=== PATIENT | female | born 1985 | race Caucasian/White ===

== ENCOUNTER → 2017-03-01 16:51 | Outpatient (CLI) | payer MEDICAID | END | disposition home or self-care (01) | LOC: D.CT 16:51 | DX: R51 Headache (principal); R20.0 Anesthesia of skin ==

== ENCOUNTER → 2017-05-26 13:55 | Outpatient (CLI) | payer MEDICAID | END | disposition home or self-care (01) | LOC: D.US 13:55 | DX: N83.209 Unspecified ovarian cyst, unspecified side (principal) ==

== ENCOUNTER → 2017-12-18 08:14 | Outpatient (CLI) | payer MEDICAID | END | disposition home or self-care (01) | LOC: D.MRI 12-17 08:30 | DX: R20.2 Paresthesia of skin (principal) ==

== ENCOUNTER → 2018-06-24 08:15 | Outpatient (CLI) | payer BC | END | disposition home or self-care (01) | LOC: D.HCCARDIO 08:15 | PROVIDERS: ATTEND Internal Medicine Cardiovascular Disease | DX: R07.9 Chest pain, unspecified (principal) ==

== ENCOUNTER → 2018-07-07 11:28 | Outpatient (CLI) | payer BC ==
--- NOTE | 2018-07-13 14:37 | ST ---
PATIENT:ALANNAH FRASER MEDICAL RECORD: [id number] SEX: F LOCATION:[facility] ORDER #: ADMISSION DATE: 07/07/18 AGE OF PATIENT: 33 REFERRING PHYSICIAN: INTERPRETING PHYSICIAN: GEOVANY PORTER MD DATE OF SERVICE: 07/07/2018 NUCLEAR STRESS TEST INDICATION: Chest pain, shortness of breath, abnormal EKG stress test. She was exercised on standard Wero protocol for 8 minutes 20 seconds achieving greater than 85% of max target heart rate response with 32 mCi of sestamibi injected at peak stress, 11 mCi were used previously for rest images. FINDINGS: Gated SPECT reveals an excellent ejection fraction at 79% with good wall motion thickening and brightness throughout the segments. SPECT IMAGING: Cardiolite was used for a myocardial perfusion agent. There is homogeneous uptake throughout all segments at rest and stress with no evidence of inducible ischemia or previous infarction. OVERALL IMPRESSION: This is a normal rest-stress Cardiolite with no evidence of inducible ischemia or previous infarction. A gated SPECT reveals preserved ejection fraction greater than 79%. At this time I would evaluate noncardiac etiology of chest pain. TRANSINT:[id number] Voice Confirmation ID: [id number] DOCUMENT ID: [id number] CC: Soumya Moore, unknown. GEOVANY PORTER MD at 1437 CC: [id number] DICTATION DATE: 07/09/18 1325 DIRECTOR IT PROJECT: 07/10/18 0256 DEP CLI 07/07/18 [id number] [place] [address]
== END | disposition home or self-care (01) ==
LOC: D.HCCARDIO 11:28
PROVIDERS: ATTEND Internal Medicine Interventional Cardiology
DX: R07.9 Chest pain, unspecified (principal)

== ENCOUNTER 2019-03-06 22:07 | Emergency (ER) | payer MEDICAID ==
[~2019-03-06] VITALS: Ht 157.5 cm; Wt 62.6 kg
[2019-03-06 22:21] VITALS: Ht 157.5 cm; Wt 62.6 kg
[2019-03-06] MEDS ORDERED: GABAPENTIN300 MG PO (22:23)
[2019-03-06] MEDS ORDERED: DOXYCYCLINE HY100 M2 PO (22:23)
[2019-03-07 00:05] LABS: HEMATOCRIT 40.1 % (36.0-48.0); HEMOGLOBIN 13.2 g/dL (12-16); LYMPHOCYTES 25.2 % (15-50); MCH 28.9 pg (26.0-34.0); MCHC 32.9 g/dL (31.0-37.0); MCV 87.7 fL (80.0-100.0); NEUTROPHILS 67.3 % (40-80); PLATELET COUNT 244 10x3/uL (130-400); RBC 4.57 10x6/uL (4.00-5.40); WBC 7.7 10x3/uL (4.8-10.8)
[2019-03-07 00:06] LABS: APTT 31.1 SECONDS (22.8-39.4); INR 0.94 (0.85-1.17); PROTIME 12.6 SECONDS (11.6-15.0)
[2019-03-07 00:07] LABS: CALC OSMOLALITY 284 mosm/kg (275-300); CARBON DIOXIDE 31.3 mmol/L (21.0-32.0); CHLORIDE - SERUM 103 mmol/L (98-107); CREATININE - SERUM 0.8 mg/dL (0.6-1.3); GLUCOSE 97 mg/dL (74-106); POTASSIUM - SERUM 3.7 mmol/L (3.5-5.1); SODIUM 143 mmol/L (136-145); UREA NITROGEN 13 mg/dL (7-18); eGFR NON AFRICAN AMERICAN 86 mL/min (90-120)
[2019-03-07 00:20] LABS: ALBUMIN 4.2 g/dL (3.4-5.0); ALKALINE PHOSPHATASE 85 U/L (30-120); ALT (SGPT) 15 U/L (10-68); CKMB 1.1 U/L (0.0-3.6); CREATINE KINASE 257 UL (21-215); MAGNESIUM - SERUM 2.1 mg/dL (1.8-2.4); PROTEIN - SERUM 7.8 g/dL (6.4-8.2); TROPONIN-I < 0.017 ng/mL (0.000-0.060)
[2019-03-07] MEDS ORDERED: CYCLOBENZAPRINE10 MG PO (00:22)
[2019-03-07 00:50] VITALS: BP 111/69
== END 2019-03-07 00:48 | disposition home or self-care (01) ==
LOC: D.ER 22:07
PROVIDERS: Emergency Medicine
DX: R20.2 Paresthesia of skin (principal); M54.5 Low back pain